=== PATIENT | female | born 1955 | race African-American/Black ===

== ENCOUNTER → 2017-03-27 | Outpatient (CLI) | payer MEDICARE, OTHER ==
[~2017-03-27] MED LIST: AMLODIPINE BESYL5 MG PO; ATIVAN2 MG/1 ML IM; DEPAKENE S; FERREX 150 FOR1 EACH PO; GENTLE LAXATIVE10 MG PR; IPRATR-ALBUTEROL3 ML INH; LOPRESSOR PO; MIRALAX119 GM PO; MOTRIN600 MG PO; ONDANSETRON HCL4 MG PO; OXYCODONE-ACET1 EAC1 PO; OXYGEN; PAIN RELIEVER325 M1 PO; PANTOPRAZOLE SO40 MG; PHENYTOIN125 MG/5 M; REMERON15 MG PO; ROBINUL1 M1; SENEXON-S TABL1 EACH PO; VIMPAT150 MG; VITAMIN D32000 UNIT PO; [UNRECOGNIZED DRUG - OTHER]
--- NOTE | ~2017-03-27 | CT57 ---
[facility] A Service of [facility] RADIOLOGY TEXT RESULTS PATIENT: BREONNA FIGUEROA LOCATION: [facility] : 55 UNIT #: [id number] AGE: [address]: Ronak Horner Jr, MD SEX: F ORDER DR: [id number] [facility]. [place], [place] [address] [id number] O MR#: [id number] [facility] #: [id number] NAME: BREONNA FIGUEROA : 1955 SEX: F STUDY DATE/TIME: 03/27/2017 14:46 UNIT: [facility] ROOM: STUDY DESCRIPTION: CT Chest Wo Cont Attending Physician: Ronak Horner Jr., M.D. Referring Physician: Ronak Horner Jr., M.D. Ordering Physician: Physician Non-Staff Primary Care Physician: Ronak Horner Jr., M.D. MEDICAL IMAGING REPORT This report is preliminary unless electronic signature is present EXAM CT chest without contrast INDICATION Coughing for 2 months and recurrent pneumonia. TECHNIQUE CT scan of the chest was performed without contrast. Coronal and sagittal reformatted images were obtained. This CT exam was performed with one or more of the following radiation dose reduction techniques: automatic exposure control, adjustment of mA and/or kV according to patient size, and iterative reconstruction. COMPARISON There are no comparison studies available. FINDINGS Emphysema. Tiny micronodule in the right upper lobe on image 10. There are patchy areas of tree-in-bud nodularity in the posterior left upper lobe. More focal areas of consolidation in the posterior left upper lobe on image 29. There is consolidation/atelectasis within the left lower lobe. There is low attenuation material within the left lower lobe bronchus, likely reflecting mucous plugging. Patchy ground-glass infiltrates in the base of the right lower lobe. A tracheostomy tube is in place. There is no suspicious lymphadenopathy. No pleural effusion. Limited imaging of the upper abdomen shows a cyst in the left kidney. Bone windows are unremarkable. IMPRESSION 1. There is atelectasis/consolidation within the left lower lobe with [facility] A Service of [facility] RADIOLOGY TEXT RESULTS PATIENT: BREONNA FIGUEROA LOCATION: [facility] : 55 UNIT #: [id number] AGE: [address]: Ronak Horner Jr, MD SEX: F ORDER DR: low attenuation material in the left lower lobe bronchus. This likely represents mucous plugging. Some of the left lower lobe is clearly atelectatic however superimposed pneumonia cannot be excluded. Followup to clearing is suggested. 2. Patchy areas of ground-glass tree-in-bud nodularity and consolidation elsewhere in the lungs mainly in the left upper lobe but also seen in the base of the right lower lobe. This also likely reflects pneumonia. Followup to clearing is suggested. Dictated by... Mathew Hayes M.D. THIS IS AN ELECTRONICALLY VERIFIED REPORT Mathew Hayes M.D. at 03/28/2017 5:17 PM Artie TD: 03/28/2017 09:37 JOB #: [id number] MEDICAL IMAGING REPORT Page 1 of 1 COPY
[2017-03-27 15:21] LABS: HEMATOCRIT 39.1 % (35.0-45.0); HEMOGLOBIN 12.7 gm/dL (12.0-16.0); MEAN CELL VOLUME 103.3 FL (83-96); MEAN CORPUSCULAR HEMOGLOBIN 33.5 PG (28-34); MEAN CORPUSCULAR HGB CONC 32.4 g/dL (30-36); MEAN PLATELET VOLUME 10.3 FL (6.5-11.5); RED BLOOD COUNT 3.78 X10e (3.90-5.30); RED CELL DISTRIBUTION WIDTH 13.3 % (11.0-15.5); WHITE BLOOD COUNT 9.7 X10e3 (4.0-10.5)
[2017-03-27 15:51] LABS: POC - CREATININE 0.82 mg/dL (0.44-1.03); POC - GFR >60.0 mL/min (>60)
[2017-03-27 16:35] LABS: ALBUMIN SERUM 3.1 g/dL (3.5-5.0); BILIRUBIN,TOTAL 0.1 mg/dL (0.2-2.0); BUN/CREATININE RATIO 44.28; CALCIUM SERUM 9.6 mg/dL (8.4-10.2); CREATININE SERUM 0.7 mg/dL (0.6-1.4); GLOM FILT RATE Estimated 108.4 mL/min (>60); PROTEIN TOTAL SERUM 8.1 g/dL (6.0-8.3)
== END | disposition home or self-care (01) ==
LOC: CCAT 13:20 → CLAB 14:01 → CCAT 14:01
PROVIDERS: Internal Medicine
DX: J18.9 Pneumonia, unspecified organism (principal); J98.11 Atelectasis; R91.8 Other nonspecific abnormal finding of lung field
CPT/HCPCS: 36415; 71250; 80053; 82565; 85027

== ENCOUNTER → 2017-04-08 | Day surgery (SDC) | payer MEDICARE, OTHER ==
--- NOTE | ~2017-04-08 | OR ---
Unit #: [id number] #: [id number] Patient: BREONNA FIGUEROA [id number] [address] [address] [id number] O MR#: [id number] NAME: BREONNA FIGUEROA ROOM: Date of Procedure: 04/08/2017 Admission Date: 04/08/2017 Surgeon: Kenny Grimm M.D. : 1955 Attending Physician: Kenny Grimm M.D. Primary Care Physician: Ronak Horner Jr., M.D. OPERATIVE REPORT PROCEDURE PERFORMED Flexible fiberoptic bronchoscopy. INDICATIONS FOR PROCEDURE Abnormal CAT scan suggesting left lower lobe bronchus being occluded. FINDINGS No endobronchial lesions were seen. Mucus plugs were removed, left greater than right. SEDATION MAC. COMPLICATION Zero. CONDITION Stable to recovery room. DESCRIPTION OF PROCEDURE The patient was brought from the shelter to the endoscopy suite and monitored for heart rate, blood pressure, saturations, and end-tidal CO2. Sedated via MAC, please see their notes for details. She had a tracheostomy tube in place. Her airways were anesthetized with 2% lidocaine. The inner cannula was removed. It appeared to be very full of bile film. Bronchoscope was placed through her tracheostomy tube without difficulty. Airways were anesthetized. All subsegments were identified. Right-sided airways were fairly unremarkable. There were some mucus plugs on the left that were removed; however, they were much less than anticipated from the CT scan. Please note that she did cough a fair amount of thick mucopurulent sputum with anesthesia of her airways. The bronchoscope was removed on two occasions to allow ventilation. Bronchoscope was finally removed without difficulty. The patient was in stable condition postprocedure. Specimens will be sent for culture and eosinophils. Dictated by... Kenny Grimm M.D. MATILDE/louie TD: 04/08/2017 15:32 Unit #: [id number] #: [id number] Patient: BREONNA FIGUEROA JOB #: [id number] OPERATIVE REPORT Page 1 of 1 X Kenny Grimm MD PROCEDURE OPERATIVE NOTE
[2017-04-08 13:08] LABS: BASOPHIL% 0.4 % (0-2.5); EOSINOPHIL# 0.1 X10e3 (0-0.7); EOSINOPHIL% 1.4 % (0.0-7.0); HEMOGLOBIN 12.9 gm/dL (12.0-16.0); LYMPHOCYTE# 1.8 X10e3 (1.0-3.5); LYMPHOCYTE% 21.9 % (17.0-45.0); MEAN CELL VOLUME 102.2 FL (83-96); MEAN CORPUSCULAR HEMOGLOBIN 34.7 PG (28-34); MEAN CORPUSCULAR HGB CONC 33.9 g/dL (30-36); MEAN PLATELET VOLUME 11.3 FL (6.5-11.5); MONOCYTE# 0.5 X10e3 (0-1.0); MONOCYTE% 6.5 % (3.0-12.0); NEUTROPHIL# 5.8 X10e3 (1.5-7.1); NEUTROPHIL% 69.8 % (40-75); PLATELET COUNT 160 X10e3 (140-420); RED BLOOD COUNT 3.72 X10e (3.90-5.30); RED CELL DISTRIBUTION WIDTH 13.5 % (11.0-15.5); WHITE BLOOD COUNT 8.3 X10e3 (4.0-10.5)
[2017-04-08 13:12] LABS: DIFF IND NO
[2017-04-08 13:32] LABS: PARTIAL THROMBOPLASTIN TIME 27.3 SECONDS (23.5-31.3); PROTHROMBIN TIME (PATIENT) 10.9 SECONDS (10.0-11.7)
== END | disposition home or self-care (01) ==
LOC: COPS 11:48
PROVIDERS: Internal Medicine
DX: T17.590A Other foreign object in bronchus causing asphyxiation, initial encounter (principal); K21.9 Gastro-esophageal reflux disease without esophagitis; G40.909 Epilepsy, unspecified, not intractable, without status epilepticus; I10 Essential (primary) hypertension; Z86.73 Personal history of transient ischemic attack (TIA), and cerebral infarction without residual deficits; Z87.440 Personal history of urinary (tract) infections; Z79.899 Other long term (current) drug therapy; Z87.891 Personal history of nicotine dependence; Z98.890 Other specified postprocedural states; Z93.0 Tracheostomy status
CPT/HCPCS: 85025; 85610; 85730; 87070; 87077; 87186; 87205; 89190; J0171